=== PATIENT | male | born 1945 | race Caucasian/White ===

== ENCOUNTER 2021-11-13 00:30 | Day surgery (SDC) | payer MEDICARE, BC, SELFPAY ==
[2021-11-03 15:14] VITALS: BMI 28.8
[2021-11-13 08:59] VITALS: BP 108/67; PULSE 116; RESP 19; TEMP 36.1; O2SAT 98; BMI 27.6
[2021-11-13] MEDS: LACTATED RINGERS 1,000 ML 150 ML IV CONT (09:04)
--- NOTE | 2021-11-13 09:26 | WPDGICN ---
Assessment and Plan Assessment and plan (1) Iron deficiency anemia: Code(s): D50.9 - Iron deficiency anemia, unspecified Status: Acute Assessment and Plan: EGD with possible biopsy or dilatation or cautery. Colonoscopy with possible biopsy or polypectomy or cautery or injection of substances. GI Consult Note Consult date/time: 11/13/21 09:26 HPI: Jason Bragg is a 76 year old male Who was referred for investigation of iron deficiency anemia. He states that he does not feel fatigued and he has not seen any blood in his stools or elsewhere. He was recently found to have a hemoglobin of 9.2. Serum iron is also low at 9. He had an EGD and colonoscopy not quite 6 years ago which were unremarkable except for a small gastric nodule and diverticulosis Review of Systems Review of Systems: All systems reviewed & are unremarkable except as noted in HPI and below PMFSH Social History Social History Smoking status: Former smoker Additional smoking assessment comments: 15-20 years quit Alcohol intake: current Drinks per week: 4 Substance use: never Substance use type: does not use Living arrangements: with family Spiritual care concerns: No Meds Home Medications and Allergies Home Medications Medication Instructions Recorded Confirmed Type aspirin 81 mg tablet,delayed 81 mg PO DAILY 04/16/21 11/13/21 History release atenolol 50 mg tablet 50 mg PO DAILY 04/16/21 11/13/21 History atorvastatin 80 mg tablet 80 mg PO DAILY 04/16/21 11/13/21 History quinapril 10 mg tablet 10 mg PO DAILY 04/16/21 11/13/21 History ascorbate calcium (vitamin C) 500 mg PO BID 11/03/21 11/13/21 History calcitriol 0.25 mcg PO DAILY 11/03/21 11/13/21 History ergocalciferol (vitamin D2) 1,250 mcg PO DAILY 11/03/21 11/13/21 History ferrous sulfate 325 mg PO BID 11/03/21 11/13/21 History Allergies Allergy/AdvReac Type Severity Reaction Status Date / Time No Known Allergies Allergy Verified 11/13/21 08:56 Vital Signs Vital Signs - 24 hr 11/13/21 08:59 Temperature 36.1 C L Pulse Rate 116 H Respiratory Rate 19 Blood Pressure 108/67 Pulse Oximetry 98 Exam Const: General: alert Orientation/consciousness: patient oriented x3 Resp: Auscultation: clear to auscultation bilaterally Cardio: Rhythm: regular rhythm GI: GI Palp: Yes Soft to palpation and No Tenderness to palpation present (GI) Neuro: General: patient oriented x3
--- NOTE | 2021-11-13 09:41 | WPDANESEPPF ---
Anes - Initial Pre Proc Eval Procedure: Operation Date: 11/13/21 10:15 Proposed Procedures p Esophagogastroduodenoscopy & Colonoscopy - Srikanth Richard MD Date/Time: 11/13/21 09:41 Surgeon: Srikanth Richard MD Pre Op Diagnosis: JAIMIE Patient Data Age: 76 Gender: M Height: 1.73 m Weight: 82.5 kg Last Vital Signs Temp 96.9 F L 11/13/21 08:59 Pulse 116 H 11/13/21 08:59 Resp 19 11/13/21 08:59 BP 108/67 11/13/21 08:59 Pulse Ox 98 11/13/21 08:59 Allergies Allergy/AdvReac Type Severity Reaction Status Date / Time No Known Allergies Allergy Verified 11/13/21 08:56 Home Medications Medication Instructions Recorded Confirmed Type aspirin 81 mg tablet,delayed 81 mg PO DAILY 04/16/21 11/13/21 History release atenolol 50 mg tablet 50 mg PO DAILY 04/16/21 11/13/21 History atorvastatin 80 mg tablet 80 mg PO DAILY 04/16/21 11/13/21 History quinapril 10 mg tablet 10 mg PO DAILY 04/16/21 11/13/21 History ascorbate calcium (vitamin C) 500 mg PO BID 11/03/21 11/13/21 History calcitriol 0.25 mcg PO DAILY 11/03/21 11/13/21 History ergocalciferol (vitamin D2) 1,250 mcg PO DAILY 11/03/21 11/13/21 History ferrous sulfate 325 mg PO BID 11/03/21 11/13/21 History Patient hx anesthesia problems: none Family hx anesthesia problems: none Results Review: All pre-operative results and documents have been reviewed as part of the pre-operative evaluation. [facility] Social History Social History Smoking status: Former smoker Additional smoking assessment comments: 15-20 years quit Alcohol intake: current Drinks per week: 4 Substance use: never Substance use type: does not use Living arrangements: with family Spiritual care concerns: No Anes - Eval Final PreProcedure Day of Procedure 11/13/21 09:41 Patient weight: normal Heart: regular rate and rhythm Lungs: clear to auscultation Airway: Mallampati scale class II Neurological: alert and oriented Last oral intake: >/= 8 hours ASA classification: III Emergent: no Anesthetic plan: proceed Anesthesia type and monitoring: general GIVS and standard monitoring Results Review: All pre-operative results and documents have been reviewed as part of the pre-operative evaluation. Informed Consent: The patient's anesthetic plan and its attendant risks and benefits were discussed with the patient/family/POA. Questions were solicited and answers provided to the satisfaction of the patient/family/POA.
--- NOTE | 2021-11-13 10:25 | SUR.OPER ---
EGD END: 1024 COLONOSCOPY START: 102
[2021-11-13 10:42] VITALS: BP 116/69; PULSE 76; RESP 14; O2SAT 100
[2021-11-13 10:52] VITALS: BP 132/72; PULSE 74; RESP 19; O2SAT 100
[2021-11-13 11:02] VITALS: BP 123/70; PULSE 69; RESP 24; O2SAT 100
== END 2021-11-13 11:16 | disposition home or self-care (01) ==
PROVIDERS: PCP Internal Medicine; Visit Provider Internal Medicine Gastroenterology
PROC: 0DJ08ZZ Inspection of Upper Intestinal Tract, Via Natural or Artificial Opening Endoscopic (ICD-10-PCS; CPT 43235; principal; 2021-11-13 10:15)
DX: D50.9 Iron deficiency anemia, unspecified (principal); K57.30 Diverticulosis of large intestine without perforation or abscess without bleeding; Q27.33 Arteriovenous malformation of digestive system vessel; Z87.891 Personal history of nicotine dependence; Z79.82 Long term (current) use of aspirin
CPT/HCPCS: 45388; 43239; 88305; J2704; J7120

== ENCOUNTER 2023-09-21 11:34 | Outpatient (CLI) | payer MEDICARE, BC, SELFPAY ==
[2023-09-21 12:04] LABS: Hematocrit 27.3 % (42.0-52.0); Hemoglobin 8.4 g/dL (14.0-18.0); Mean Corpuscular HGB Conc 30.8 g/dl (32-36); Mean Corpuscular Hemoglobin 30.2 pg (26-34); Mean Corpuscular Volume 98.2 fl (80-100); Mean Platelet Volume 8.7 fl (7.4-10.4); Platelet Count Result 235 k/mm3 (150-375); Red Blood Count 2.78 M/mm3 (4.6-6.20); Red Cell Distribution Width 18.8 % (11.5-14.5); White Blood Count 6.7 K/mm3 (4.5-10.0)
[2023-09-21 12:43] LABS: Anion Gap 5 mmol/L (8-16); Blood Urea Nitrogen 19 mg/dL (9-20); Calcium 9.7 mg/dL (8.4-10.2); Carbon Dioxide 27 mmol/L (22-30); Chloride 104 mmol/L (98-107); Estimated Glomerular Filt Rate 49; Glucose 107 mg/dL (65-110); Potassium 4.7 mmol/L (3.4-5.0); Sodium 136 mmol/L (137-145)
[2023-09-21 13:30] LABS: Vitamin B12 > 1000.0 pg/mL (239-931)
[2023-09-21 13:57] LABS: Iron 105 ug/dL (49-181)
[2023-09-21 14:07] LABS: Percent Iron Saturation 32 % (20-50)
[2023-09-24 13:12] LABS: Erythropoietin (EPO) 26.5 mIU/mL (2.6-18.5)
== END 2023-09-21 11:35 | disposition home or self-care (01) ==
LOC: ANHLAB 11:37
PROVIDERS: Visit Provider Internal Medicine Hematology & Oncology
DX: D64.9 Anemia, unspecified (principal)
CPT/HCPCS: 36415; 80048; 82607; 82668; 82728; 83540; 83550; 85027

== ENCOUNTER 2024-03-10 10:46 | Inpatient (IN) | payer MEDICARE, BC, SELFPAY ==
[2024-03-10] VITALS (14 sets, daily range): BP systolic 87–125; BP diastolic 56–72; PULSE 92–120; RESP 16–28; TEMP 36.4–38.5; O2SAT 18–99; BMI 24.6
--- NOTE | ~2024-03-10 | XR_ITS ---
XR chest 1V portable Ordering provider: Latonya Jackman MD History: 78 years Male with . SOB . Comparison: March 12, 2024 FINDINGS: MEDIASTINUM: The cardiac silhouette is not enlarged. Postoperative changes in the mediastinum. LUNGS: No pneumothorax. Minimal right pleural effusion. Bilateral air space disease in the upper and lower lobes more on the right side. OTHER: No free air under the diaphragm. IMPRESSION: Minimal right pleural effusion. Bilateral air space disease in the upper and lower lobes more on the right side suggestive of pneumonia. Underlying pulmonary edema is possible. Reviewed, dictated and finalized at location A. IMPRESSION: Minimal right pleural effusion. Bilateral air space disease in the upper and lo wer lobes more on the right side suggestive of pneumonia. Underlying pulmonary edema is possible.
--- NOTE | ~2024-03-10 | XR_ITS ---
XR chest 2V Ordering provider: Latonya Jackman History: 78 years Male with . sob, cough. . Comparison: March 10, 2024 FINDINGS: MEDIASTINUM: The cardiac silhouette is slightly Enlarged. congestive rambo. Postoperative changes in the mediastinum. LUNGS: No effusions or pneumothorax. Bilateral airspace disease involving the right upper and both lo wer lobes suggestive of pneumonia. Pulmonary edema is also possible. OTHER: No free air under the diaphragm. Degenerative changes of the spine. IMPRESSION: Bilateral pneumonia. Underlying pulmonary edema is not excluded. Worsening compared to the previous s tudy is seen Reviewed, dictated and finalized at location A. IMPRESSION: Bilateral pneumonia. Underlying pulmonary edema is not excluded. Worsening comp ared to the previous study is seen
--- NOTE | ~2024-03-10 | XR_ITS ---
XR chest 2V 03/10/2024 11:34 Indication: Chest pain and shortness of breath Procedure: 2 view chest Comparison: Comparison to multiple prior studies sequentially, with oldest reviewed study dated 05/16. Findings: Status post median sternotomy for CABG. Cardiomegaly with pulmonary edema. Small pleural ef fusions. No pneumothorax. Impression: 1: Cardiomegaly with pulmonary edema. Reviewed, dictated and finalized at location B. Impression: 1: Cardiomegaly with pulmonary edema.
--- NOTE | ~2024-03-10 | CT_ITS ---
EXAMINATION: CTA chest PE protocol DATE: 03/10/2024 13:53 INDICATION: Cancer presenting with hypoxia and chest pain TECHNIQUE: Computed tomography (CT) pulmonary angiogram of the chest was performed with 100 mL Omnipa que-350 intravenous contrast. Additional 3D reconstructions utilizing coronal maximum intensity proje ction (MIP) were performed. Automated exposure control and iterative reconstruction technique were em ployed. The dose-length product was 365.11 mGy-cm. COMPARISON: None FINDINGS: Mild emphysema. Small to moderate-sized bilateral posterior layering pleural effusions. There is diff use groundglass opacities and peripheral and lower lung predominant reticular opacities which could r epresent either acute pulmonary edema, more chronic chronic interstitial lung disease or combination thereof. There are couple regions in the anterior left upper lobe and dependent right lower lobe wit h small patchy areas which appear more consolidative for which the differential would also include pn eumonia. There is consolidation with architectural distortion cavitation in the left perihilar region anterior to the major fissure. There is abrupt cut off of a couple contrast-filled pulmonary arterie s which extend into this region of consolidation. This could represent change of either prior pneumon ectomy or radiation fibrosis for reported lung cancer, recurrent malignancy, cavitary pneumonia or so me combination thereof. There is a calcified lymph node also anterior perihilar region and differenti al would also include fibrosing mediastinitis. No central pulmonary arterial filling defects to sugge st pulmonary embolism. Cardiomegaly. Atherosclerotic coronary artery calcific lesions and change of p rior median sternotomy and coronary artery bypass grafting. Thoracic aorta is normal in caliber. Ther e is increased soft tissue density in the mediastinum and extending to the right hilum suggesting con fluent lymphadenopathy, potentially metastatic. 2.2 cm cyst at the upper pole of the left kidney. Sma ll region of cortical scarring at the right kidney. Ectatic upper abdominal aorta measuring up to 3.3 cm in maximal diameter. Mild thoracic spondylosis. IMPRESSION: 1. No pulmonary embolism. 2. Mild emphysema. 3. Likely congestive heart failure with cardiomegaly, small to moderate-sized bilateral pleural effus ions and diffuse interstitial and groundglass opacities in both lungs suggesting mild to moderate pul monary edema. There are couple regions of more patchy consolidation which could represent more focal alveolar edema or pneumonia. Also difficult to exclude underlying chronic interstitial lung disease. 4. Architectural distortion and regions of consolidation with cavitation in the anterior left perihil ar region likely related to treated malignancy although differential includes pneumonia as detailed a ange. Correlation with prior outside imaging would be helpful in interpretation. 5. Mediastinal and right hilar lymphadenopathy suspicious for metastatic disease. Reviewed, dictated and finalized at location A. IMPRESSION: 1. No pulmonary embolism. 2. Mild emphysema. 3. Likely congestive heart failure with cardiomegaly, small to moderate-sized b ilateral pleural effusions and diffuse interstitial and groundglass opacities i n both lungs suggesting mild to moderate pulmonary edema. There are couple jhoanthan ons of more patchy consolidation which could represent more focal alveolar chandrika a or pneumonia. Also difficult to exclude underlying chronic interstitial lung disease. 4. Architectural distortion and regions of consolidation with cavitation in the anterior left perihilar region likely related to treated malignancy although d ifferential includes pneumonia as detailed above. Correlation with prior outsid e imaging w
--- NOTE | 2024-03-10 10:50 | ECG_ITS ---
Test Date: 2024-03-10 10:52:13 Measurements Intervals [place] Rate: 100 P: 0 DE: 0 QRS: 101 QRSD: 90 T: 31 QT: 318 QTc: 411 Interpretive Statements ATRIAL FIBRILLATION WITH RAPID VENTRICULAR RESPONSE RIGHT AXIS DEVIATION BASELINE ARTIFACT- III, AVR, AVL, AVF ABNORMAL ECG No previous ECG available for comparison Electronically Signed On 03-10-2024 11:43:10 CDT by Santosh Hough D.O.
[2024-03-10 12:04] LABS: Basophils Percent Auto 0.4 % (0.2-1.2); Eosinophils Percent Auto 0.7 % (0-4.4); Hemoglobin 7.4 g/dL (14.0-18.0); Immature Granulocyte Absolute 0.17 K/mm3 (0.00-0.031); Immature Granulocyte Percent A 3.8 % (0-0.5); Immature Platelet Fraction Pct 11.1 % (0.9-11.2); Lymphocytes Absolute Auto 0.41 K/mm3 (0.9-3.2); Lymphocytes Percent Auto 9.1 % (18.3-44.2); Mean Corpuscular HGB Conc 30.8 g/dl (32-36); Mean Corpuscular Hemoglobin 26.3 pg (26-34); Mean Corpuscular Volume 85.4 fl (80-100); Monocytes Absolute Auto 0.4 K/mm3 (0.1-0.6); Monocytes Percent Auto 8.2 % (2.6-8.5); Neutrophils Absolute Auto 3.5 K/mm3 (1.3-6.7); Neutrophils Percent Auto 77.8 % (45.5-73.1); Platelet Count Result 59 k/mm3 (150-375); Red Blood Count 2.81 M/mm3 (4.6-6.20); Red Cell Distribution Width 21.2 % (11.5-14.5); White Blood Count 4.5 K/mm3 (4.5-10.0)
[2024-03-10 12:10] LABS: INR 1.2; Prothrombin Time 15.6 Seconds (11.1-14.7)
[2024-03-10 12:11] LABS: Partial Thromboplastin Time 30.9 Seconds (22.3-36.8)
[2024-03-10 12:19] LABS: Alanine Aminotransferase 160 U/L (6-50); Albumin Level 2.8 g/dL (3.5-5.1); Alkaline Phosphatase 158 U/L (38-126); Anion Gap 6 mmol/L (4-12); Aspartate Amino Transferase 130 U/L (17-59); Bilirubin,Total 0.5 mg/dL (0.2-1.3); Blood Urea Nitrogen 24 mg/dL (9-20); Calcium 8.8 mg/dL (8.4-10.2); Carbon Dioxide 29 mmol/L (22-30); Chloride 98 mmol/L (98-107); Estimated CRCL calculation 45 ml/min; Estimated Glomerular Filt Rate > 60; Glucose 102 mg/dL (65-110); Lipase 155 U/L (23-300); Potassium 4.1 mmol/L (3.4-5.0); Sodium 133 mmol/L (137-145)
[2024-03-10 12:27] LABS: Troponin I < 0.012 ng/mL (0.000-0.034)
[2024-03-10 12:33] LABS: Platelet Estimate Decreased (Adequate)
[2024-03-10 12:34] LABS: Schistocytes None Seen
--- NOTE | 2024-03-10 13:34 | ED.CHESTPAIN ---
HPI - Chest Pain General Chief Complaint: Chest Pain Stated Complaint: cp Time Seen by Provider: 03/10/24 11:05 History of Present Illness HPI narrative: 78-year-old male presents to the emergency department for evaluation for increased O2 requirement and left-sided chest pain. Patient is currently being treated for lung cancer at [facility]. Patient reports he has not had any surgical intervention. Patient states he did have his last chemotherapy on March 01. Patient reports since then he has had worsening exertional shortness of breath. Patient was hypoxic upon arrival to the emergency department. Patient denies any associated chest pain. Patient denies any fevers. Patient denies any falls or injuries. Related Data Home Medications Medication Instructions Recorded Confirmed aspirin 81 mg tablet,delayed 81 mg PO DAILY 04/16/21 11/24/23 release (Adult Low Dose Aspirin) atenolol 50 mg tablet 50 mg PO DAILY 04/16/21 11/24/23 atorvastatin 80 mg tablet 80 mg PO DAILY 04/16/21 11/24/23 quinapril 10 mg tablet 10 mg PO DAILY 04/16/21 11/24/23 ascorbate calcium (vitamin C) 500 500 mg PO BID 11/03/21 11/24/23 mg capsule calcitriol 0.25 mcg capsule 0.25 mcg PO DAILY 11/03/21 11/24/23 ergocalciferol (vitamin D2) 1,250 1,250 mcg PO DAILY 11/03/21 11/24/23 mcg (50,000 unit) capsule ferrous sulfate 325 mg (65 mg 325 mg PO BID 11/03/21 11/24/23 iron) tablet Allergies Allergy/AdvReac Type Severity Reaction Status Date / Time No Known Allergies Allergy Verified 03/10/24 10:52 Review of Systems Review of Systems: All systems reviewed & are unremarkable except as noted in HPI and below PMFSH Social History Social History Smoking status: Former smoker Tobacco type: cigarettes Additional smoking assessment comments: 15-20 years quit Alcohol intake: current Drinks per week: 4 Substance use: never Substance use type: does not use Living arrangements: with family Spiritual care concerns: No Exam Narrative: APPEARANCE: Increased work of breathing HEAD: normocephalic, atraumatic. EYES: PERRLA/EOMI, conjunctivae clear. NOSE: Normal no drainage EARS:TMS clear with good light reflex. THROAT: Pharynx clear, no exudate. NECK: Supple. No adenopathy, no masses. RESPIRATORY: Airway patent, respirations nonlabored. Clear to auscultation bilaterally, no rales, rhonchi, wheezing. CARDIOVASCULAR: Regular rate and rhythm without murmurs rubs or gallops. ABDOMINAL: Soft, nontender, nondistended, normal bowel sounds MUSCULOSKELETAL: Moves all extremities. Strength/ROM intact, No edema, No calf tenderness. NEURO: Alert. Cranial nerves II through XII intact. Course Course Emergency Course: Case discussed with hospitalist patient was accepted for admission, oncology was consulted Vital Signs Vital signs: Vital Signs Temperature 97.5 F L 03/10/24 10:51 Pulse Rate 99 03/10/24 10:51 Respiratory Rate 19 03/10/24 10:51 Blood Pressure 121/72 03/10/24 10:51 Pulse Oximetry 91 03/10/24 10:51 Oxygen Delivery Room Air 03/10/24 10:51 Temperature 98.3 F 03/10/24 18:12 Pulse Rate 111 H 03/10/24 18:12 Respiratory Rate 28 H 03/10/24 18:12 Blood Pressure 125/66 03/10/24 18:12 Pulse Oximetry 98 03/10/24 18:12 Oxygen Delivery Nasal Cannula 03/10/24 10:53 Oxygen Flow Rate 2 03/10/24 10:53 MDM - Chest Pain MDM Narrative Medical decision making narrative: 78-year-old male present to emergency department for evaluation for new O2 requirement and increased shortness of breath have. Patient is afebrile with no leukocytosis and a hemoglobin of 7.4, patient's most recent hemoglobin was 9.0. [place] [address]. Patient has acutely elevated liver enzymes as well. Patient's BNP is 5680. Chest x-ray does show evidence of pulmonary edema. CTA was ordered to evaluate for pulmonary em
[2024-03-10 13:46] LABS: NT Pro B Type Natriuretic Pept 5680 pg/mL (19.9-100)
[2024-03-10 14:38] LABS: Influenza A QL RT-PCR Negative (Negative); Influenza B QL RT-PCR Negative (Negative); RSV RNA, RT-PCR Negative (Negative); SARS-CoV-2 RNA PCR Negative (Negative)
[2024-03-10 15:07] LABS: Troponin I < 0.012 ng/mL (0.000-0.034)
[2024-03-10] MEDS: FUROSEMIDE INJ 40 MG/4 ML VIAL IV PUSH ×2 (15:21→21:16)
--- NOTE | 2024-03-10 18:11 | ADMGEN ---
This patient, Jason Bragg, was admitted to IMU Room 205-02. Patient/family oriented to hospital policies and general routines including ID bracelet, bed and alarms, visiting hours, pain management, procedures, bathroom and other care routines, personal items, smoking policy, room service/diet, and visiting hours. Information on how to activate the Rapid Response Team has been discussed. Patient/Family are encouraged to report perceived risks to care and to ask questions if they do not understand what they are told or what they should do.
--- NOTE | 2024-03-10 18:18 | PM.IMHP ---
H&P: HPI History of Present Illness Date/Time: 03/10/24 18:18 Chief Complaint: Shortness of breath, cough, weakness Narrative: Mr. 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 Received cycle 3 of pembrolizumab with the addition of pemetrexed on 02/24/2024. The patient has felt well 3 days after February 23. Since then, he has had progressive weakness, shortness of breath, and a cough. He presents to [facility] with the following findings. A hemodynamically stable yet frail-appearing male. Hypoxic so placed on 2 L nasal cannula. CTA chest PE protocol without PE, mild emphysema, small to moderate sized bilateral pleural effusions and diffuse interstitial and ground-glass opacities in both lungs suggesting mild to moderate pulmonary edema. Additional regions of patchy consolidation. Mediastinal and right hilar lymphadenopathy. WBC count on the lower end of normal at 4500, hemoglobin 7.4, his baseline in the nines. Platelet count 59, previously normal platelet count. INR 1.2. Sodium 133. BUN 124. Serum creatinine 1.1. AST 130, ALT 160, alkaline phosphatase 158, troponin negative. BNP 5600, total protein 6, albumin 2.8. Quad viral screen negative. EKG with atrial fibrillation with controlled ventricular rate. QTC 411. He was administered Lasix 40 mg IV x1 in the ER. Admitted on 03/10/2024 for heart failure, anemia, thrombocytopenia, weakness, adverse effect of immunotherapy/chemotherapy, acute hypoxic respiratory failure. Review of Systems Review of Systems: All systems reviewed & are unremarkable except as noted in HPI and below (Subjective) [facility] Social History Social History Smoking status: Former smoker Tobacco type: cigarettes Additional smoking assessment comments: 15-20 years quit Alcohol intake: current Drinks per week: 4 Substance use: never Substance use type: does not use Living arrangements: with family Spiritual care concerns: No Meds Home Medications and Allergies Home Medications Medication Instructions Recorded Confirmed Type atenolol 50 mg tablet 50 mg PO DAILY 04/16/21 03/10/24 History atorvastatin 80 mg tablet 80 mg PO DAILY 04/16/21 03/10/24 History calcitriol 0.25 mcg capsule 0.25 mcg PO DAILY 11/03/21 03/10/24 History ergocalciferol (vitamin D2) 1,250 1,250 mcg PO MONTHLY 11/03/21 03/10/24 History mcg (50,000 unit) capsule folic acid 1 mg tablet 1 mg PO DAILY 03/10/24 03/10/24 History metoprolol succinate 50 mg 50 mg PO DAILY 03/10/24 03/10/24 History tablet,extended release 24 hr ondansetron 8 mg disintegrating 8 mg PO Q8H PRN Nausea And Vomiting 03/10/24 03/10/24 History tablet pantoprazole 40 mg tablet,delayed 40 mg PO BID 03/10/24 03/10/24 History release prochlorperazine maleate 10 mg 10 mg PO Q6H PRN Nausea 03/10/24 03/10/24 History tablet Allergies Allergy/AdvReac Type Severity Reaction Status Date / Time No Known Allergies Allergy Verified 03/10/24 10:52 Vital Signs Vital Signs - 24 hr 03/10/24 10:51 03/10/24 10:53 03/10/24 12:48 Temperature 97.5 F L Pulse Rate 99 92 Respiratory Rate 19 16 Blood Pressure 121/72 106/67 Pulse Oximetry 91 98 99 Oxygen Delivery Room Air Nasal Cannula Oxygen Flow Rate 2 03/10/24 15:51 03/10/24 17:15 03/10/24 18:12 Temperature 98.3 F Pulse Rate 99 98 111 H Respiratory Rate 20 20 28 H Blood Pressure 100/68 110/65 125/66 Pulse Oximetry
[2024-03-10 18:52] LABS: Troponin I < 0.012 ng/mL (0.000-0.034)
[2024-03-10] MEDS: AZITHROMYCIN 500 MG/NS 250 ML 500 MG/250 ML BAG 250 MG IVPB (20:31)
[2024-03-10] MEDS: SODIUM CHLORIDE 0.9% IV 250 ML 30 ML IV CONT (23:53)
[2024-03-10] MEDS: TUBING, BLOOD PLUM PUMP TUBING 1 EACH XX (23:53)
[2024-03-11] VITALS (26 sets, daily range): BP systolic 97–119; BP diastolic 53–67; PULSE 82–119; RESP 18–20; TEMP 35.7–37.1; O2SAT 92–100
--- NOTE | 2024-03-11 | ECHO_ITS ---
Patient Info Name: Jason Bragg Age: 78 years : 1945 Gender: Male Ht: 69 in Wt: 205 lbs BSA: 2.15 m2 HR: 112 bpm BP: 100 / 53 mmHg Technical Quality: Good Exam Date: 03/11/2024 1:50 PM Exam Location: Echo Lab Patient Status: Inpatient Admit Date: 03/11/2024 Staff Ordering Physician: Latonya Jackman MD Cotton Tier: Joe Rapp RDCS Attending Provider: Latonya Jackman MD Exam Type: CA echo doppler color flow Study Info Indications - heart failure Complete two-dimensional, color flow and Doppler transthoracic echocardiogram is performed. Summary 1. Complete two-dimensional, color flow and Doppler transthoracic echocardiogram is performed. 2. Left ventricular chamber dimension is normal. 3. Left ventricular systolic function is normal, estimated at 65-70%. 4. The left ventricular diastolic function is grade III diastolic dysfunction. 5. E/e' 9 is minimally elevated. 6. Left atrial chamber dimension is moderately enlarged. 7. Right atrial chamber dimension is mildly enlarged. 8. There is mild aortic valve sclerosis. 9. There is mild mitral valve regurgitation. 10. There is moderate tricuspid valve regurgitation. 11. Moderate pulmonary hypertension, estimated pulmonary arterial systolic pressure is 50 mmHg. Left Ventricle E/e' 9 is minimally elevated. Left ventricular chamber dimension is normal. Left ventricular systolic function is normal, estimated at 65-70%. The left ventricular diastolic function is grade III diastolic dysfunction. Right Ventricle Right ventricular chamber dimension is normal. Right ventricular systolic function is normal. Left Atria Left atrial chamber dimension is moderately enlarged. Right Atria Right atrial chamber dimension is mildly enlarged. Aortic Valve The aortic valve is trileaflet. There is mild aortic valve sclerosis. There is no aortic valve stenosis. There is no aortic valve regurgitation. Pulmonic Valve There is no pulmonic regurgitation. Mitral Valve There is no mitral valve stenosis. There is mild mitral valve regurgitation. Tricuspid Valve There is moderate tricuspid valve regurgitation. Moderate pulmonary hypertension, estimated pulmonary arterial systolic pressure is 50 mmHg. Pericardium/Pleural There is no pericardial effusion. Inferior Vena Cava Normal inferior vena cava with >50% collapse upon inspiration consistent with normal right atrial pressure, 5 mmHg. Aorta The aortic root size at the sinus of Valsalva is normal. Left Ventricular Outflow Tract Name Value Normal LVOT 2D LVOT Diameter 2.0 cm LVOT Doppler LVOT Peak Gradient 3 mmHg LVOT Mean Gradient 1 mmHg LVOT VTI 13 cm LVOT VTI/AV VTI Ratio 1.0 LVOT Stroke Volume 40 ml LVOT CO 3.2 l/min LVOT CI 1.5 l/min/m2 Pulmonic Valve Name Value Normal PV Doppler
[2024-03-11] MEDS: ALBUMIN HUMAN 25% 25 GM/100 ML 100 ML IVPB ×3 (02:50→17:12)
[2024-03-11 04:48] LABS: Hematocrit 24.5 % (42.0-52.0); Hemoglobin 7.6 g/dL (14.0-18.0); Immature Platelet Fraction Pct 9.3 % (0.9-11.2); Mean Corpuscular Hemoglobin 26.3 pg (26-34); Mean Corpuscular Volume 84.8 fl (80-100); Mean Platelet Volume 10.9 fl (7.4-10.4); Red Blood Count 2.89 M/mm3 (4.6-6.20); Red Cell Distribution Width 19.9 % (11.5-14.5); White Blood Count 5.1 K/mm3 (4.5-10.0)
[2024-03-11 04:55] LABS: Platelet Count Result 72 k/mm3 (150-375)
[2024-03-11 04:57] LABS: INR 1.2; Prothrombin Time 15.3 Seconds (11.1-14.7)
[2024-03-11 05:12] LABS: Alanine Aminotransferase 134 U/L (6-50); Alkaline Phosphatase 150 U/L (38-126); Anion Gap 10 mmol/L (4-12); Aspartate Amino Transferase 98 U/L (17-59); Blood Urea Nitrogen 22 mg/dL (9-20); Calcium 8.9 mg/dL (8.4-10.2); Carbon Dioxide 29 mmol/L (22-30); Chloride 95 mmol/L (98-107); Estimated CRCL calculation 39 ml/min; Estimated Glomerular Filt Rate 53; Glucose 88 mg/dL (65-110); Magnesium 1.9 mg/dL (1.6-2.3); Potassium 3.4 mmol/L (3.4-5.0); Sodium 134 mmol/L (137-145)
--- NOTE | 2024-03-11 07:00 | ECG_ITS ---
Test Date: 2024-03-11 07:48:17 Measurements Intervals [place] Rate: 106 P: 0 ID: 0 QRS: 113 QRSD: 98 T: -31 QT: 343 QTc: 457 Interpretive Statements ATRIAL FIBRILLATION WITH RAPID VENTRICULAR RESPONSE RIGHT AXIS DEVIATION BORDERLINE ST-T WAVE ABNORMALITY- INFERIOR LEADS ABNORMAL ECG Compared to ECG 03/10/2024 10:52:13 NO SIGNIFICANT CHANGE Electronically Signed On 03-11-2024 07:50:10 CDT by Santosh Hough D.O.
[2024-03-11] MEDS: SODIUM CHLORIDE 0.9% IV 250 ML 30 ML IV CONT (07:56)
[2024-03-11] MEDS: FOLIC ACID 1 MG TABLET PO (08:50)
[2024-03-11] MEDS: ATORVASTATIN 40 MG TABLET 80 MG PO (08:50)
[2024-03-11] MEDS: PANTOPRAZOLE 40 MG TABLET PO (08:50)
[2024-03-11] MEDS: METOPROLOL SUCCINATE EXT REL 50 MG TABCR PO (08:51)
[2024-03-11] MEDS: calcitrioL 0.25 MCG CAPSULE PO (08:51)
[2024-03-11] MEDS: DIGOXIN TAB 125 MCG TABLET PO (08:52)
--- NOTE | 2024-03-11 09:39 | PCSTNOTE ---
Please refer to the Bedside Swallow Evaluation in the EMR. Please note, silent aspiration cannot be ruled out at bedside.
--- NOTE | 2024-03-11 10:06 | PM.IMPN ---
Progress Note: A&P Assessment and Plan (1) Physical deconditioning: Code(s): R53.81 - Other malaise Status: Acute (2) Hypoalbuminemia: Code(s): E88.09 - Other disorders of plasma-protein metabolism, not elsewhere classified Status: Acute (3) Lung cancer: Code(s): C34.90 - Malignant neoplasm of unspecified part of unspecified bronchus or lung Status: Acute (4) Hepatotoxicity: Code(s): K71.9 - Toxic liver disease, unspecified Status: Acute (5) Thrombocytopenia: Code(s): D69.6 - Thrombocytopenia, unspecified Status: Acute (6) Anemia: Code(s): D64.9 - Anemia, unspecified Status: Acute (7) Hypoxic: Code(s): R09.02 - Hypoxemia Status: Acute (8) CHF (congestive heart failure): Code(s): I50.9 - Heart failure, unspecified Status: Acute (9) Iron deficiency anemia: Code(s): D50.9 - Iron deficiency anemia, unspecified Status: Acute Plan Mr. 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 Received cycle 3 of pembrolizumab with the addition of pemetrexed on 02/24/2024. The patient has felt well 3 days after February 23. Since then, he has had progressive weakness, shortness of breath, and a cough. He presents to [facility] with the following findings. A hemodynamically stable yet frail-appearing male. Hypoxic so placed on 2 L nasal cannula. CTA chest PE protocol without PE, mild emphysema, small to moderate sized bilateral pleural effusions and diffuse interstitial and ground-glass opacities in both lungs suggesting mild to moderate pulmonary edema. Additional regions of patchy consolidation. Mediastinal and right hilar lymphadenopathy. WBC count on the lower end of normal at 4500, hemoglobin 7.4, his baseline in the nines. Platelet count 59, previously normal platelet count. INR 1.2. Sodium 133. BUN 124. Serum creatinine 1.1. AST 130, ALT 160, alkaline phosphatase 158, troponin negative. BNP 5600, total protein 6, albumin 2.8. Quad viral screen negative. EKG with atrial fibrillation with controlled ventricular rate. QTC 411. He was administered Lasix 40 mg IV x1 in the ER. Admitted on 03/10/2024 for heart failure, anemia, thrombocytopenia, weakness, adverse effect of immunotherapy/chemotherapy, acute hypoxic respiratory failure. Spoke with Dr. Dickerson. recommend to monitor parameters, blood transfusion. Monitor hemoglobin 1 hour post 1 unit PRBC. Continue to trend CBC. Continue to trend liver enzymes. DuoNebs p.r.n.. Prochlorperazine p.r.n.. Ceftriaxone and azithromycin for pneumonia. Check Legionella and pneumococcal antigen. Check interval QTC interval Surface echocardiogram If volume support is needed albumin infusion is a good idea. Appears to have pulmonary edema. Wean oxygen as tolerated Lasix 40 mg IV b.i.d. 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 Appears to be on Xanax p.r.n. at home. Continue He had a recent GI bleed and was discharged on midodrine. His blood pressure is currently acceptable. Restart midodrine if indicated. 18:55, updated by nurse about RVR to 140's when standing. he likely does not have good intravascular volume support. start albumin infusions March 11: Continue ceftriaxone and azithromycin. Is now on 1 L and breathing better. He had dyspnea when taken off the oxygen. Pending
[2024-03-11 14:56] LABS: Hematocrit 29.4 % (42.0-52.0); Hemoglobin 9.5 g/dL (14.0-18.0)
[2024-03-11] MEDS: TUBING, BLOOD PLUM PUMP TUBING 1 EACH XX (17:00)
[2024-03-11] MEDS: AZITHROMYCIN 500 MG/NS 250 ML 500 MG/250 ML BAG 250 MG IVPB (20:55)
[2024-03-12] VITALS (20 sets, daily range): BP systolic 100–150; BP diastolic 48–92; PULSE 92–179; RESP 16–24; TEMP 35.9–36.8; O2SAT 84–100
[2024-03-12] MEDS: ALBUMIN HUMAN 25% 25 GM/100 ML 100 ML IVPB ×3 (00:05→12:07)
[2024-03-12 04:48] LABS: Hematocrit 27.9 % (42.0-52.0); Hemoglobin 8.7 g/dL (14.0-18.0); Immature Platelet Fraction Pct 9.2 % (0.9-11.2); Mean Corpuscular HGB Conc 31.2 g/dl (32-36); Mean Corpuscular Hemoglobin 26.6 pg (26-34); Mean Corpuscular Volume 85.3 fl (80-100); Mean Platelet Volume 11.7 fl (7.4-10.4); Platelet Count Result 84 k/mm3 (150-375); Red Blood Count 3.27 M/mm3 (4.6-6.20); Red Cell Distribution Width 19.1 % (11.5-14.5); White Blood Count 5.6 K/mm3 (4.5-10.0)
[2024-03-12 05:03] LABS: Alanine Aminotransferase 85 U/L (6-50); Albumin Level 3.1 g/dL (3.5-5.1); Alkaline Phosphatase 116 U/L (38-126); Anion Gap 7 mmol/L (4-12); Aspartate Amino Transferase 58 U/L (17-59); Blood Urea Nitrogen 20 mg/dL (9-20); Calcium 8.8 mg/dL (8.4-10.2); Carbon Dioxide 32 mmol/L (22-30); Chloride 95 mmol/L (98-107); Estimated CRCL calculation 49 ml/min; Estimated Glomerular Filt Rate > 60; Glucose 97 mg/dL (65-110); Magnesium 2.1 mg/dL (1.6-2.3); Phosphorus 3.1 mg/dL (2.5-4.5); Potassium 3.2 mmol/L (3.4-5.0); Sodium 134 mmol/L (137-145)
[2024-03-12] MEDS: IPRATROPIUM 0.5 MG/ALBUTEROL SULFATE 2.5 MG AMPUL.NEB 3 ML INHALATION (07:40)
[2024-03-12] MEDS: PANTOPRAZOLE 40 MG TABLET PO (09:58)
[2024-03-12] MEDS: ATORVASTATIN 40 MG TABLET 80 MG PO (09:58)
[2024-03-12] MEDS: calcitrioL 0.25 MCG CAPSULE PO (09:58)
[2024-03-12] MEDS: METOPROLOL SUCCINATE EXT REL 50 MG TABCR PO (09:59)
[2024-03-12] MEDS: DIGOXIN TAB 125 MCG TABLET PO (09:59)
[2024-03-12] MEDS: FOLIC ACID 1 MG TABLET PO (10:00)
--- NOTE | 2024-03-12 12:13 | P.PNIM_ITS ---
Progress Note: A&P Assessment and Plan (1) Physical deconditioning: Code(s): R53.81 - Other malaise Status: Acute (2) Hypoalbuminemia: Code(s): E88.09 - Other disorders of plasma-protein metabolism, not elsewhere classified Status: Acute (3) Lung cancer: Code(s): C34.90 - Malignant neoplasm of unspecified part of unspecified bronchus or lung Status: Acute (4) Hepatotoxicity: Code(s): K71.9 - Toxic liver disease, unspecified Status: Acute (5) Thrombocytopenia: Code(s): D69.6 - Thrombocytopenia, unspecified Status: Acute (6) Anemia: Code(s): D64.9 - Anemia, unspecified Status: Acute (7) Hypoxic: Code(s): R09.02 - Hypoxemia Status: Acute (8) CHF (congestive heart failure): Code(s): I50.9 - Heart failure, unspecified Status: Acute (9) Iron deficiency anemia: Code(s): D50.9 - Iron deficiency anemia, unspecified Status: Acute Plan Mr. 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 Received cycle 3 of pembrolizumab with the addition of pemetrexed on 02/24/2024. The patient has felt well 3 days after February 23. Since then, he has had progressive weakness, shortness of breath, and a cough. He presents to [place] [facility] with the following findings. A hemodynamically stable yet frail-appearing male. Hypoxic so placed on 2 L nasal cannula. CTA chest PE protocol without PE, mild emphysema, small to moderate sized bilateral pleural effusions and diffuse interstitial and ground-glass opacities in both lungs suggesting mild to moderate pulmonary edema. Additional regions of patchy consolidation. Mediastinal and right hilar lymphadenopathy. WBC count on the lower end of normal at 4500, hemoglobin 7.4, his baseline in the nines. Platelet count 59, previously normal platelet count. INR 1.2. Sodium 133. BUN 124. Serum creatinine 1.1. AST 130, ALT 160, alkaline phosphatase 158, troponin negative. BNP 5600, total protein 6, albumin 2.8. Quad viral screen negative. EKG with atrial fibrillation with controlled ventricular rate. QTC 411. He was administered Lasix 40 mg IV x1 in the ER. Admitted on 03/10/2024 for heart failure, anemia, thrombocytopenia, weakness, adverse effect of immunotherapy/chemotherapy, acute hypoxic respiratory failure. Spoke with Dr. Dickerson. recommend to monitor parameters, blood transfusion. Monitor hemoglobin 1 hour post 1 unit PRBC. Continue to trend CBC. Continue to trend liver enzymes. DuoNebs p.r.n.. Prochlorperazine p.r.n.. Ceftriaxone and azithromycin for pneumonia. Check Legionella and pneumococcal antigen. Check interval QTC interval Surface echocardiogram If volume support is needed albumin infusion is a good idea. Appears to have pulmonary edema. Wean oxygen as tolerated Lasix 40 mg IV b.i.d. Continue telemetry for AFib Continue [employer] calcitriol, atorvastatin, metoprolol, digoxin, prochlorperazine, Protonix Tramadol and morphine for pain p.r.n. Appears to be on Xanax p.r.n. at home. Continue He had a recent GI bleed and was discharged on midodrine. His blood pressure is currently acceptable. Rest
[2024-03-12] MEDS: ENOXAPARIN 30 MG/0.3 ML SYRINGE SUB-Q (12:47)
[2024-03-12] MEDS: POTASSIUM CHLORIDE 20 MEQ ER TABLET 40 MEQ PO (12:47)
--- NOTE | 2024-03-12 12:55 | PC.NURSE ---
pt down to radiology
--- NOTE | 2024-03-12 15:56 | PC.NURSE ---
report called to [facility] , pt wishes to go up by w/c
--- NOTE | 2024-03-12 16:57 | PC.NURSE ---
This patient, Jason Bragg, was received from on 03/12/24 at 1658. Patient/family oriented to unit policies and routines.
[2024-03-12] MEDS: CEFEPIME 2 GM/NS 50 ML 2 GM/50 ML BAG IVPB (17:33)
[2024-03-12] MEDS: methylPREDNISolone SOD SUCC 125 MG VIAL IV PUSH (17:33)
[2024-03-12 19:08] LABS: MRSA (PCR) NOT DETECTED (NOT DETECTE)
[2024-03-12] MEDS: METOPROLOL TARTRATE INJ 5 MG/5 ML VIAL IV PUSH (19:10)
[2024-03-12 19:22] LABS: Alveolar/Arterial O2 Gradient 308.3 mmHg; Base Excess ABG -0.8 mEq/l (+/-2.0); Fractional Inspired Oxygen 60 %; HCO3 ABG 24.8 mEq/l (22.0-26.0); Oxygen Content ABG 13.7 %vol (16.0-22.0); Oxygen Saturation ABG 93.3 % (95.0-100.0); Oxyhemoglobin 91.7 % THb (90.0-100.0); PCO2 ABG 45.2 mmHg (35.0-45.0); PO2 ABG 69.8 mmHg (80.0-100.0); PO2 FiO2 Ratio Arterial Blood 1.16 %; Total Hemoglobin 10.6 g/dL (12.0-18.0); pH ABG 7.358 (7.350-7.450)
[2024-03-12 19:23] LABS: Modified Allen's Test Pass; Site Drawn RIGHT RADIAL
[2024-03-12 19:25] LABS: Device HIGH FLOW NASAL CANN
--- NOTE | 2024-03-12 19:45 | PC.NURSE ---
This patient, Jason Bragg, was received from [facility] on 03/12/24 at 1945. Report received from JAM Sweeney. Patient/family oriented to unit policies and routines.
[2024-03-12 19:46] LABS: Hematocrit 30.7 % (42.0-52.0); Hemoglobin 9.7 g/dL (14.0-18.0); Immature Platelet Fraction Pct 9.8 % (0.9-11.2); Mean Corpuscular HGB Conc 31.6 g/dl (32-36); Mean Corpuscular Hemoglobin 27.7 pg (26-34); Mean Corpuscular Volume 87.7 fl (80-100); Mean Platelet Volume 11.6 fl (7.4-10.4); Platelet Count Result 125 k/mm3 (150-375); Red Cell Distribution Width 19.3 % (11.5-14.5); White Blood Count 9.2 K/mm3 (4.5-10.0)
--- NOTE | 2024-03-12 20:00 | PC.NURSE ---
1950 Patient short of breath, diaphoretic, and restless. JAM Sweeney stated this is how patient was when rapid response called. Patient pulled up in bed and assessment completed. INDIO Cherry notified of patient's heart rate, oxygen saturation, and assessment. New orders received. Spoke with patient and about using a bipap or keeping patient comfortable. Patient stated he did not want the bipap and wanted to be made comfortable. INDIO Cherry called and made aware of patient's decision. New orders received.
[2024-03-12 20:02] LABS: Magnesium 2.2 mg/dL (1.6-2.3)
[2024-03-12 20:04] LABS: Alanine Aminotransferase 79 U/L (6-50); Albumin Level 3.8 g/dL (3.5-5.1); Alkaline Phosphatase 128 U/L (38-126); Anion Gap 11 mmol/L (4-12); Aspartate Amino Transferase 75 U/L (17-59); Bilirubin,Total 1.1 mg/dL (0.2-1.3); Blood Urea Nitrogen 23 mg/dL (9-20); Calcium 9.1 mg/dL (8.4-10.2); Carbon Dioxide 27 mmol/L (22-30); Chloride 96 mmol/L (98-107); Estimated CRCL calculation 49 ml/min; Estimated Glomerular Filt Rate > 60; Glucose 190 mg/dL (65-110); Lactic Acid Reflex 2.4 mmol/L (0.7-2.0); Sodium 134 mmol/L (137-145)
[2024-03-12] MEDS: MORPHINE SULFATE (*CRX) 2 MG/ML INJ IV PUSH ×2 (20:13→22:04)
[2024-03-12] MEDS: SCOPOLAMINE 1 MG PATCH 1 PATCH TRANSDERM (20:14)
[2024-03-12 20:25] LABS: Troponin I 0.086 ng/mL (0.000-0.034)
[2024-03-12 20:40] LABS: Digoxin 0.7 ng/mL (0.8-2.0)
[2024-03-12] MEDS: LORazepam INJ (*CRX) 2 MG/ML VIAL 1 MG IV PUSH ×2 (21:16→23:26)
--- NOTE | 2024-03-12 21:40 | PC.NURSE ---
2054 INDIO Cherry called to check on patient. Update given. 2114 Patient c/o no relief of shortness of breath from Morphine IVP. Patient given Ativan IVP as ordered to help with air hunger. 2129 Spoke with patient and family concerning plan for patient. Patient wanting to be comfortable. 2136 Spoke with INDIO Barnes concerning patient's complaints. Stated she would be down to see patient. 2139 INDIO Barnes at bedside to see patient. Stated she would enter new orders and start patient on a Morphine drip for comfort.
--- NOTE | 2024-03-12 21:59 | P.PNCROSS_ITS ---
Event Note Event Note Event Note: I spoke with the patient's nurse several times this evening regarding the michelle ent's condition (rapid atrial fibrillation, increasing oxygen requirements). The patient has decided that he wishes to be kept comfortable and I verified this with the patient, his spouse, and other family members at bedside. He received morphine 2 mg IV and lorazepam 1 mg IV with minimal improvement and he is now is being started on a morphine drip. All other medications and interventions have been discontinued and orders for comfort measures have been entered in the chart.
[2024-03-12] MEDS: MORPHINE 50 MG/NS 100ML (*CRX) 50 MG/100 ML BAG IV CONT (22:06)
[2024-03-12 22:42] LABS: Reflex Lactic Acid Yes or No Add Lactic
[2024-03-13 06:10] VITALS: PULSE 0; RESP 0
--- NOTE | 2024-03-13 07:01 | PC.NURSE ---
[facility] number will not connect. [facility] number called; INFORMED THAT THE FAMILY WISHES TO USE [facility] [employer] IN [place] but that phone number is not in service. Information given and made aware patient will be in the morgue in the next 20 minutes. Body [facility] at this time.
--- NOTE | 2024-03-13 07:17 | PM.DDS ---
Discharge Summary Date and Time Date of : 03/13/24 Time of : 06:15 Provider Pronounced By: 2 RNs Name of First RN That Pronounced: Mya Billingsley RN Name of Second RN That Pronounced: Debby Prado RN Probable Cause of Probable Cause of : Pneumonia Summary Hospital Course: Mr. 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 Received cycle 3 of pembrolizumab with the addition of pemetrexed on 02/24/2024. The patient has felt well 3 days after February 23. Since then, he has had progressive weakness, shortness of breath, and a cough. He presents to [place] ER with the following findings. A hemodynamically stable yet frail-appearing male. Hypoxic so placed on 2 L nasal cannula. CTA chest PE protocol without PE, mild emphysema, small to moderate sized bilateral pleural effusions and diffuse interstitial and ground-glass opacities in both lungs suggesting mild to moderate pulmonary edema. Additional regions of patchy consolidation. Mediastinal and right hilar lymphadenopathy. WBC count on the lower end of normal at 4500, hemoglobin 7.4, his baseline in the nines. Platelet count 59, previously normal platelet count. INR 1.2. Sodium 133. BUN 124. Serum creatinine 1.1. AST 130, ALT 160, alkaline phosphatase 158, troponin negative. BNP 5600, total protein 6, albumin 2.8. Quad viral screen negative. EKG with atrial fibrillation with controlled ventricular rate. QTC 411. He was administered Lasix 40 mg IV x1 in the ER. Admitted on 03/10/2024 for heart failure, anemia, thrombocytopenia, weakness, adverse effect of immunotherapy/chemotherapy, acute hypoxic respiratory failure. Spoke with Dr. Dickerson. recommend to monitor parameters, blood transfusion. Monitor hemoglobin 1 hour post 1 unit PRBC. Continue to trend CBC. Continue to trend liver enzymes. DuoNebs p.r.n.. Prochlorperazine p.r.n.. Ceftriaxone and azithromycin for pneumonia. Check Legionella and pneumococcal antigen. Check interval QTC interval Surface echocardiogram If volume support is needed albumin infusion is a good idea. Appears to have pulmonary edema. Wean oxygen as tolerated Lasix 40 mg IV b.i.d. Continue telemetry for AFib Continue [employer] calcitriol, atorvastatin, metoprolol, digoxin, prochlorperazine, Protonix Tramadol and morphine for pain p.r.n. Appears to be on Xanax p.r.n. at home. Continue He had a recent GI bleed and was discharged on midodrine. His blood pressure is currently acceptable. Restart midodrine if indicated. 18:55, updated by nurse about RVR to 140's when standing. he likely does not have good intravascular volume support. start albumin infusions March 11: Continue ceftriaxone and azithromycin. Is now on 1 L and breathing better. He had dyspnea when taken off the oxygen. Pending surface echocardiogram. The patient is more hypotensive now and remains tachycardic. Discontinue Lasix as he likely will not tolerate diuresis. He appears dry. Continue albumin infusion for intravascular support. Hemoglobin 7.6 from 7.4 after 1 unit. Patient already receiving a 2nd unit ordered by the night doctor. Hemoglobin later in the day. Continue transfusions okay with the patient. Transaminitis is improving. He had an episode of choking yesterday. He was laying back. Speech therapy saw him and educated in on sitting upright when he is eating or drinking. He passed a swallow otherwise in the recommend resuming diet. March 12: Discussed shaq
[2024-03-15 19:13] LABS: Pneumococcal Antigen Urine NOT DETECTED
[2024-03-16 02:37] LABS: Legionella pneumophila Ag Ur NOT DETECTED
== END 2024-03-13 06:15 | disposition expired | DRG 193 ==
LOC: ANHED 15:47 → ANHIMU 17:09 → ANH3MED 03-12 17:08 → ANHIMU 03-12 19:50
PROVIDERS: Physician Assistant; Admitting Provider General Practice; Emergency Provider Emergency Medicine; PCP Internal Medicine; Visit Provider General Practice
DX: J18.9 Pneumonia, unspecified organism (principal); J96.01 Acute respiratory failure with hypoxia; C34.12 Malignant neoplasm of upper lobe, left bronchus or lung; I50.9 Heart failure, unspecified; E88.09 Other disorders of plasma-protein metabolism, not elsewhere classified; D69.6 Thrombocytopenia, unspecified; D50.9 Iron deficiency anemia, unspecified; I48.91 Unspecified atrial fibrillation; J43.9 Emphysema, unspecified; Z66 Do not resuscitate; Z20.822 Contact with and (suspected) exposure to COVID-19; T45.1X5A Adverse effect of antineoplastic and immunosuppressive drugs, initial encounter; Z87.891 Personal history of nicotine dependence; Z79.82 Long term (current) use of aspirin
CPT/HCPCS: 36415; 36430; 36600; 71045; 71046; 71275; 80053; 80162; 82805; 83605; 83690; 83735; 83880; 84100; 84443; 84484; 85014; 85018; 85025; 85027; 85055; 85610; 85730; 86850; 86900; 86901; 86923; 87040; 87449; 87637; 87641; 87899; 92610; 93005; 93306; 94640; 96375; 97161; 97165; 99285; A9270; G0378; J0456; J0692; J0696; J1650; J1940; J2060; J2270; J2919; J7050; P9016; P9047; Q9967